=== PATIENT | male | born 1975 | race Caucasian/White ===

== ENCOUNTER → 2017-09-29 | Outpatient (CLI) | payer OTHER | END | disposition home or self-care (01) | LOC: CVU 10:09 | PROVIDERS: ATTEND Physician Assistant | DX: M47.892 Other spondylosis, cervical region (principal); M40.292 Other kyphosis, cervical region; G62.9 Polyneuropathy, unspecified; I10 Essential (primary) hypertension; F17.210 Nicotine dependence, cigarettes, uncomplicated; R20.0 Anesthesia of skin; M79.671 Pain in right foot; M79.672 Pain in left foot | CPT/HCPCS: 72040; 72110; 93922 ==